=== PATIENT | female | born 1955 | race Caucasian/White ===

== ENCOUNTER 2021-09-02 12:26 | Outpatient (CLI) | payer MEDICARE, BC ==
[~2021-09-02] VITALS: Ht 162.6 cm; Wt 57.6 kg
[2021-09-02 14:05] VITALS: BP 172/69; PULSE 69; TEMP 98
[2021-09-02] MEDS ORDERED: INDERAL LA160 MG PO (14:14)
[2021-09-02] MEDS ORDERED: HYDRODIURIL50 MG PO (14:15)
[2021-09-02] MEDS ORDERED: ZESTRIL40 MG PO (14:15)
[2021-09-02] MEDS ORDERED: ZITHROMAX 250M250 MG PO (14:16)
[2021-09-02] MEDS ORDERED: PROTONIX 40MG T40 MG PO (14:16)
[2021-09-02] MEDS ORDERED: CLEOCIN HCL300 MG PO (14:17)
[2021-09-02] MEDS ORDERED: NORCO 325 MG-51 TAB PO (14:17)
[2021-09-02] MEDS ORDERED: LEVOXYL0.05 MG PO (14:17)
[2021-09-02] MEDS ORDERED: ZOFRAN ODT4 MG PO (14:18)
== END 2021-09-02 14:20 | disposition home or self-care (01) ==
LOC: EUO 12:26
DX: B99.9 Unspecified infectious disease (principal)
CPT/HCPCS: C1751; J0696; J0878